=== PATIENT | female | born 1950 | race Caucasian/White ===

== ENCOUNTER 2021-03-12 10:04 | Outpatient (REF) | payer MEDICARE, SELFPAY ==
[2021-03-12 10:49] LABS: MANUAL DIFF FLAG NO
[2021-03-12 11:09] LABS: Basophils Percent Auto 0.7 % (0-2); Eosinophils Absolute Auto 0.1 X10*3/uL (0.0-0.4); Eosinophils Percent Auto 1.9 % (0-4); Hematocrit 42.3 % (37-47); Imm Gran Abs Auto 0.04 X10*3/uL (0.00-0.03); Imm Gran Pct Auto 0.9 % (0.0-0.4); Lymphocytes Absolute Auto 1.5 X10*3/uL (1.2-4.9); Lymphocytes Percent Auto 34.1 % (20-40); Mean Corpuscular HGB Conc 33.1 g/dl (31.0-35.0); Mean Corpuscular Hemoglobin 32.2 pg (27.0-33.0); Mean Corpuscular Volume 97.2 fL (80-98); Mean Platelet Volume 9.1 fL (9.4-12.3); Monocytes Absolute Auto 0.8 X10*3/uL (0.1-1.2); Monocytes Percent Auto 17.5 % (2-11); Neutrophils Absolute Auto 1.9 X10*3/uL (2.0-8.3); Neutrophils Percent Auto 44.9 % (45-73); Platelet Count 185 X10*3/uL (160-400); Red Blood Count 4.35 X10*6/uL (4.20-5.50); Red Cell Distribution Width 13.1 % (11.0-16.0); White Blood Count 4.3 X10*3/uL (4.8-10.8)
[2021-03-12 11:26] LABS: Phenytoin Dilantin 15.6 ug/mL (10.0-20.0); Valproate 43.9 mcg/mL (50.0-100.0)
== END 2021-03-12 10:05 | disposition home or self-care (01) ==
LOC: HO.LAB 10:04
PROVIDERS: PCP Internal Medicine; Visit Provider Psychiatry & Neurology Neurology
DX: G40.909 Epilepsy, unspecified, not intractable, without status epilepticus (principal); Z79.899 Other long term (current) drug therapy
CPT/HCPCS: 36415; 80164; 80185; 85025

== ENCOUNTER 2021-09-02 10:14 | Outpatient (REF) | payer MEDICARE, SELFPAY ==
[2021-09-02 12:03] LABS: Phenytoin Dilantin 14.5 ug/mL (10.0-20.0); Valproate 38.7 mcg/mL (50.0-100.0)
== END 2021-09-02 10:15 | disposition home or self-care (01) ==
LOC: HO.LAB 10:14
PROVIDERS: PCP Internal Medicine; Visit Provider Psychiatry & Neurology Neurology
DX: G40.909 Epilepsy, unspecified, not intractable, without status epilepticus (principal); Z79.899 Other long term (current) drug therapy
CPT/HCPCS: 36415; 80164; 80185

== ENCOUNTER 2022-03-18 09:55 | Outpatient (REF) | payer MEDICARE, SELFPAY ==
[2022-03-18 12:31] LABS: Phenytoin Dilantin 17.1 ug/mL (10.0-20.0); Valproate 24.6 mcg/mL (50.0-100.0)
== END 2022-03-18 09:56 | disposition home or self-care (01) ==
LOC: HO.LAB 09:55
PROVIDERS: PCP Internal Medicine; Visit Provider Psychiatry & Neurology Neurology
DX: G40.909 Epilepsy, unspecified, not intractable, without status epilepticus (principal); Z79.899 Other long term (current) drug therapy
CPT/HCPCS: 36415; 80164; 80185

== ENCOUNTER 2022-09-08 09:37 | Outpatient (REF) | payer MEDICARE, SELFPAY ==
[2022-09-08 10:36] LABS: Alanine Aminotransferase 30 U/L (0-31); Albumin Level 4.2 g/dL (3.5-5.0); Alkaline Phosphatase 70 U/L (39-117); Aspartate Amino Transferase 36 U/L (5-31); Bilirubin Direct < 0.2 mg/dL (0.0-0.5); Bilirubin Total 0.3 mg/dL (0.0-1.0); Total Protein 7.1 g/dL (6.5-8.0)
[2022-09-08 10:46] LABS: Valproate 42.1 mcg/mL (50.0-100.0)
[2022-09-08 11:09] LABS: Phenytoin Dilantin 14.7 ug/mL (10.0-20.0)
== END 2022-09-08 09:38 | disposition home or self-care (01) ==
LOC: HO.LAB 09:37
PROVIDERS: PCP Internal Medicine; Visit Provider Psychiatry & Neurology Neurology
DX: G40.909 Epilepsy, unspecified, not intractable, without status epilepticus (principal); Z79.899 Other long term (current) drug therapy
CPT/HCPCS: 36415; 80076; 80164; 80185

== ENCOUNTER 2024-03-01 10:15 | Outpatient (REF) | payer MEDICARE, SELFPAY ==
[2024-03-01 11:58] LABS: Valproate 21.6 mcg/mL (50.0-100.0)
== END 2024-03-01 10:16 | disposition home or self-care (01) ==
LOC: HO.LAB 10:15
PROVIDERS: PCP Internal Medicine; Visit Provider Psychiatry & Neurology Neurology
DX: G40.909 Epilepsy, unspecified, not intractable, without status epilepticus (principal)
CPT/HCPCS: 36415; 80164

== ENCOUNTER 2024-07-10 21:59 | Emergency (ER) | payer MEDICARE, SELFPAY ==
--- NOTE | ~2024-07-10 | CT_ITS ---
EXAMINATION: CT ABDOMEN AND PELVIS WITH CONTRAST CLINICAL INFORMATION: Abdominal pain. COMPARISON: None available. TECHNIQUE: Multidetector volumetric images were obtained from the superior aspect of the liver through the pubic symphysis following administration 85 mL of Omnipaque 350 intravenous contrast. Sagittal and coronal reformatted images were obtained on the technologist's workstation. Oral contrast: No This CT examination was performed using dose optimization techniques as appropriate, variously including the following: *Automated exposure control *Adjustment of mA and/or kV according to patient size (this includes techniques or standardized protocols for targeted exams where dose is matched to indication/reason for exam; i.e. extremities or head) *Use of iterative reconstruction technique DLP: 407 mGy-cm FINDINGS: LUNG BASES: The visualized lung bases are unremarkable. LIVER, GALLBLADDER, AND BILIARY TREE: The liver is normal in size, shape, and attenuation. No focal hepatic lesion or biliary ductal dilatation is present. The gallbladder is unremarkable with no evidence of radiopaque gallstones, gallbladder wall thickening, or obvious pericholecystic inflammatory changes. PANCREAS: Unremarkable. SPLEEN: Unremarkable. ADRENAL GLANDS: Unremarkable. KIDNEYS AND URETERS: The kidneys are normal in size, shape, and attenuation. No hydronephrosis, hydroureter, or calculi seen. No perinephric stranding. There are a few bilateral renal subcentimeter hypodensities likely small cysts. BLADDER: Unremarkable. GASTROINTESTINAL TRACT: There is a single diverticula of the sigmoid colon without diverticulitis. The appendix is not identified. ABDOMINAL WALL: There is a small supraumbilical hernia containing fat. There is a minimal umbilical hernia containing fat. LYMPH NODES: Normal. VASCULAR: There is mild atherosclerotic plaque of the abdominal aorta. PELVIC VISCERA: Unremarkable. OSSEOUS STRUCTURES: There is moderate L4-[address]/CT abdomen pelvis w IV con IMPRESSION: Mild diverticulosis of the sigmoid colon. No evidence of diverticulitis. Small supraumbilical and umbilical hernias containing fat. No definitive acute intra-abdominal process identified. Fleischner guidelines were followed. Electronically signed by: Maximino George MD 07/11/2024 01:52 AM EDT
[2024-07-10 22:05] VITALS: BP 156/86; PULSE 84; RESP 18; TEMP 36.9; O2SAT 96; BMI 25.5
[2024-07-10 22:39] LABS: Hemoglobin 13.8 g/dl (12.0-16.0); Mean Corpuscular HGB Conc 34.5 g/dl (31.0-35.0); Mean Corpuscular Hemoglobin 32.4 pg (27.0-33.0); Mean Corpuscular Volume 93.9 fL (80.0-98.0); Mean Platelet Volume 8.8 fL (9.4-12.3); Red Blood Count 4.26 X10*6/uL (4.20-5.50); Red Cell Distribution Width 13.1 % (11.0-16.0)
[2024-07-10 22:53] LABS: Alanine Aminotransferase 25 U/L (0-31); Alkaline Phosphatase 66 U/L (39-117); Anion Gap 13 (12-20); Aspartate Amino Transferase 28 U/L (5-31); Bilirubin Total 0.3 mg/dL (0.0-1.0); Blood Urea Nitrogen 14 mg/dL (9-16); Calcium 8.6 mg/dL (8.4-10.2); Carbon Dioxide 25 mmol/L (22-29); Chloride 95 mmol/L (96-108); Creatinine Clr Calc Pharmacy 56.8; Estimated Glomerular Filt Rate > 60; Glucose Random 168 mg/dL (60-115); Lipase 60 U/L (8-78); Potassium 4.6 mmol/L (3.3-5.1); Sodium 128 mmol/L (135-145)
--- NOTE | 2024-07-10 23:20 | ED_ITS ---
HPI - General Adult General Chief complaint: Abdominal Pain Stated complaint: constipation, abd pain Time Seen by Provider: 07/10/24 23:20 History of Present Illness ED Provider: Lorene MORALES narrative: The patient is a 74-year-old female who says that about 9 days ago she thought she had food poisoning. She had nausea and loose stools. She took Pepto-Bismol for a few days. But she has continued to feel unwell. Over the last 2 days she is concerned that she has had no bowel movements at all. She thought she might be constipated and gave herself enemas at home without relief.The patient reports feeling nausea. She says that the nausea is most apparent when she is indoors doing nothing in particular. She says that she has been spending a certain amount of time outside doing yard work. she says that when she is outside an active she is less aware of the nausea. She has not vomited. She feels that her abdomen is distended and uncomfortable. She does not really have pain however. No fever. No vomiting. She has a history of an appendectomy as a child. She has also had hysterectomy. Related Data Previous Rx's ?Medication ?Instructions ?Recorded metoclopramide HCl 10 mg tablet 10 mg PO Q6H PRN nausea and 07/11/24 vomiting #10 tabs Allergies Allergy/AdvReac Type Severity Reaction Status Date / Time Sulfa (Sulfonamide Allergy Unknown UNKNOWN Verified 07/11/24 03:47 Antibiotics) [SULFA (SULFONAMIDE ANTIBIOTICS)] Review of Systems 2 Review of Systems: Yes all other systems are reviewed and are negative PMFSH Social History Social History Smoked in Last 30 Days: No Use of substances other than those prescribed or required for medical reasons: No Advance Directives: No Advance Directives Information Provided: Yes Physical Exam ED Vital Signs: Vital Signs - 24 hr 07/10/24 22:05 07/10/24 23:41 07/11/24 01:25 Temperature 98.5 F 97.5 F 98.3 F Pulse Rate 84 75 72 Respiratory Rate 18 18 17 Blood Pressure 156/86 H 137/76 118/66 Pulse Oximetry 96 97 99 Oxygen Delivery Method Room Air Room Air Room Air 07/11/24 03:15 Temperature 98.5 F Pulse Rate 70 Respiratory Rate 16 Blood Pressure 116/73 Pulse Oximetry 98 Oxygen Delivery Method Room Air BMI result Body Mass Index 25.5 Const Other: the patient is a 74-year-old woman who is awake and alert. She has an anxious affect. She does not appear in overt distress. HENMT Other: Face is symmetrical. Mucous membranes not obviously dry. Eyes General: appearance normal, both eyes and all related structures Conjunctivae: conjunctivae normal Sclerae: sclerae normal EOM: EOMs intact bilaterally Neck Neck: Yes full ROM and Yes no JVD Resp Effort & Inspection: normal respiratory effort Auscultation: clear to auscultation bilaterally Cardio Rate: regular rate Rhythm: regular rhythm Heart sounds: S1 normal heart sound present and S2 normal heart sound present GI Other: the abdomen may be mildly protuberant but it is not tense or tympanitic. No obvious focal tenderness of any significance. No rebound or guarding. Skin Other: Skin is pale and dry. Neuro Other: The patient is awake and alert with normal mental status. Cranial nerves are grossly intact. She moves her extremities normally. She has a normal gait. The Extrem Other: no peripheral edema Medications Administered Discontinued Medications Generic Name Dose Route Start Last Admin Trade Name Freq PRN Reason Stop Dose Admin Sodium Chloride 1,000 mls @ 999 mls/hr 07/10/24 23:45 07/11/24 02:10 Ns IV 07/11/24 00:45 Infused .Q1H1M MIMA Infusion Iohexol 85 ml 07/11/24 00:43 07/11/24 00:43 Iohexol 350 Mg/Ml 100 Ml Infus..Btl IV 07/11/24 00:44 85 ml ONCE ONE Administration Medical Decision Making Medical Decision Making [facility] Narrative: the patient is a 74-year-old woman who has felt that she has had abdominal problems for about 8 days. She has had nausea but no vomiting. She had some loose stools several days ago but has had no bowel movements for the last 2 days. She says that typically she has very regular bowel movements. She feels that the absence of bowel movements over the last 2 days most indicate a constipation. She tried enemas at home with no stool output. She describes persistent nausea and mild general abdominal discomfort. She has a history of an appendectomy and a hysterectomy. Her physical exam is not highly suggestive of an acute surgical abdomen but given the persistence of her symptoms a CT of the abdomen and pelvis was done. This did not show any distinct pathology. It did not suggest any significant constipation.Her labs are unremarkable. The patient was given a L of IV fluids. She was reassured. I expect that she has some kind of gastrointestinal indisposition that I expect will ultimately will be self-limiting. Lab Data 07/10/24 22:31 07/10/24 22:31 Labs: Lab Results 07/10/24 Range/Units 22:31 WBC 5.6 (4.8-10.8) X10*3/uL RBC 4.26 (4.20-5.50) X10*6/uL Hgb 13.8 (12.0-16.0) g/dl Hct 40.0 (37.0-47.0) % MCV 93.9 (80.0-98.0) fL MCH 32.4 (27.0-33.0) pg MCHC 34.5 (31.0-35.0) g/dl RDW 13.1 (11.0-16.0) % Plt Count 188 (160-400) X10*3/uL MPV 8.8 L (9.4-12.3) fL Immature Gran % (Auto) 0.8 H (0.0-0.4) % Neut % (Auto) 57.2 (45-73) % Lymph % (Auto) 23.5 (20-40) % [place] % (Auto) 15.8 H (2-11) % Eos % (Auto) 2.1 (0-4) % Baso % (Auto) 0.6 (0-2) % Lymph # (Auto) 1.2 (1.2-4.9) X10*3/uL [place] # (Auto) 0.8 (0.1-1.2) X10*3/uL Eos # (Auto) 0.1 (0.0-0.4) X10*3/uL Baso # (Auto) 0.0 (0.0-0.2) X10*3/uL Abs Immat Gran (auto) 0.04 H (0.00-0.03) X10*3/uL Absolute Neuts (auto) 3.0 (2.0-8.3) x10*3/uL Absolute Nucleated RBC 0.000 (0.0-0.012) X10*3/uL Nucleated RBC % (auto) 0.0 (0.0-0.2) /100WBC Smear Tech's Comments VERIFIED Sodium 128 L (135-145) mmol/L Potassium 4.6 (3.3-5.1) mmol/L Chloride 95 L (96-108) mmol/L Carbon Dioxide 25 (22-29) mmol/L Anion Gap 13 (12-20) BUN 14 (9-16) mg/dL Creatinine 0.77 (0.5-1.4) mg/dL Estim Creat Clear Calc 56.8 Estimated GFR > 60 Random Glucose 168 H (60-115) mg/dL Calcium 8.6 (8.4-10.2) mg/dL Total Bilirubin 0.3 (0.0-1.0) mg/dL AST 28 (5-31) U/L ALT 25 (0-31) U/L Alkaline Phosphatase 66 (39-117) U/L C-Reactive Protein 0.42 (< or = 0.50) mg/dL Total Protein 7.0 (6.5-8.0) g/dL Albumin 4.0 (3.5-5.0) g/dL Lipase 60 (8-78) U/L Discharge Plan Discharge Clinical Impression: Nausea, Abdominal discomfort Patient Disposition: Home, Self-Care Additional Instructions: Your testing in the emergency room today is for the most part quite reassuring. I have sent a prescription for medication called metoclopramide (also known as Reglan) to your pharmacy. You may use this as needed for nausea symptoms. Please contact your regular doctor's office in the morning to make a follow up appointment to discuss these symptoms further. Return to the emergency room if significantly worse. Prescriptions: New metoclopramide HCl 10 mg tablet 10 mg PO Q6H PRN (Reason: nausea and vomiting) Qty: 10 0RF Referrals: Asher Sandoval III, MD [Primary Care Provider] - (Nausea) Interventions: ED Discharge Assessment Last Done: 07/11/24 03:15 Discharge Date/Time: 07/11/24 03:15 Print Language: Guamanian
[2024-07-10 23:41] VITALS: BP 137/76; PULSE 75; RESP 18; TEMP 36.4; O2SAT 97
[2024-07-11 00:18] LABS: Basophils Percent Auto 0.6 % (0-2); Eosinophils Absolute Auto 0.1 X10*3/uL (0.0-0.4); Eosinophils Percent Auto 2.1 % (0-4); Imm Gran Abs Auto 0.04 X10*3/uL (0.00-0.03); Imm Gran Pct Auto 0.8 % (0.0-0.4); Lymphocytes Absolute Auto 1.2 X10*3/uL (1.2-4.9); Lymphocytes Percent Auto 23.5 % (20-40); MANUAL DIFF FLAG SCAN; Monocytes Absolute Auto 0.8 X10*3/uL (0.1-1.2); Monocytes Percent Auto 15.8 % (2-11); Neutrophils Percent Auto 57.2 % (45-73); PLT CLUMP 1; SCAN SMEAR FLAG 1
[2024-07-11 00:23] LABS: Platelet Count 188 X10*3/uL (160-400); White Blood Count 5.6 X10*3/uL (4.8-10.8)
[2024-07-11] MEDS: iohexoL 350 MG/ML 100 ML INFUS..BTL 85 ML IV (00:43)
[2024-07-11 00:47] LABS: SLIDE REVIEW VERIFIED
[2024-07-11] MEDS: 0.9 % Sodium Chloride 1,000 ML 999 ML IV (01:09)
[2024-07-11 01:25] VITALS: BP 118/66; PULSE 72; RESP 17; TEMP 36.8; O2SAT 99
[2024-07-11 01:41] LABS: C Reactive Protein 0.42 mg/dL (< or = 0.50)
[2024-07-11 03:15] VITALS: BP 116/73; PULSE 70; RESP 16; TEMP 36.9; O2SAT 98
== END 2024-07-11 03:15 | disposition home or self-care (01) ==
PROVIDERS: Emergency Provider Emergency Medicine; PCP Internal Medicine
DX: K59.00 Constipation, unspecified (principal); R11.2 Nausea with vomiting, unspecified; R10.30 Lower abdominal pain, unspecified; Z79.899 Other long term (current) drug therapy
CPT/HCPCS: 36415; 74177; 80053; 83690; 85025; 85027; 86140; 96360; 99285; Q9967

== ENCOUNTER 2025-07-12 08:58 | Outpatient (REF) | payer MEDICARE, SELFPAY | END 2025-07-12 08:59 | disposition home or self-care (01) | LOC: HO.LAB 08:58 | PROVIDERS: PCP Internal Medicine; Visit Provider Psychiatry & Neurology Neurology | DX: G40.909 Epilepsy, unspecified, not intractable, without status epilepticus (principal); G25.0 Essential tremor; Z79.899 Other long term (current) drug therapy | CPT/HCPCS: 36415; 80164; 80185; 99212 ==

== ENCOUNTER 2025-07-12 08:58 | Outpatient (AMB) | payer MEDICARE, SELFPAY ==
--- NOTE | 2025-07-12 08:59 | A.OFFVIS_ITS ---
Intake Visit Reasons: f/u for Sz, Tremors Allergies Sulfa (Sulfonamide Antibiotics) (SULFA (SULFONAMIDE ANTIBIOTICS)) Allergy (Unknown, Verified 07/11/24 03:47) UNKNOWN Medication List - Last Reconciled 07/12/25 by Amanda Kauffman MD Depakote (divalproex) 250 mg PO TID 90 days NS Dilantin Extended (phenytoin sodium extended) 100 mg orally 2 caps on even days, 3 caps on odd days; 90 days NS metoclopramide HCl 10 mg PO Q6H PRN primidone 50 mg PO BEDTIME HPI Comments Details: 75 yr old woman with long standing seizure disorder. Doing well with no sz since 09/06/19. Has been having some balance problems, better by swinging arms. Walks 1 mile daily. One trip and near fall. Severe leg cramps controlled with some OTC pills of Magnesium. Tremors R>L worse with coffee. She has a history of epilepsy since childhood age 13 yrs. She's had a total of approximately 30 grand mal seizures in her life. Every time she was she would have a bunch of seizures. She has been on anticonvulsants all of her life. Her last grand mal seizure > 14 yrs ago after switching from brand-name to generic medication. She has no side effects from the medications. Lab work has been done but is not available at this time. She has no other medical problems. Teeth Are sensitive and eyes are sensitive to light also. ? Tremors in the hands have increased somewhat especially if she is holding something after stopping her Primidone 6 weeks ago. [facility] Medical History (Updated 07/12/25 @ 09:11 by Amanda Kauffman MD) Benign essential tremor Ataxia Seizure disorder Review of Systems Const Details: Sleep:? Difficulty getting to sleep?denies.? Difficulty maintaining sleep?denies? .? Urge to move legs?denies.? Teeth grinding?denies.? Shouting or Kicking during sleep?denies.? Abnormal behavior during sleep?denies.? Excessive sleep?denies.? Snoring?denies.? Daytime sleepiness?denies.? ?? General/Constitutional:? Change in appetite?denies.? Chills?denies.? Fatigue?denies.? Fever?denies .? Weight gain?denies.? Weight loss?denies.? ?? Ophthalmologic:? Blurred vision?denies.? Diminished visual acuity?denies.? ?? ENT:? Stuffiness?denies.? Decreased hearing?denies.? Dry mouth?denies.? Ear pain?denies.? Nosebleed?denies.? Ringing in the ears?denies.? Sinus pain?denies .? Sore throat?denies.? Swollen glands?denies.? ?? Endocrine:? Cold intolerance?denies.? Excessive thirst?denies.? Frequent urination? denies.? Heat intolerance?denies.? ?? Respiratory:? Shortness of breath?denies.? Chest pain?denies.? Cough?denies.? ?? Breast:? Breast lump?denies.? Nipple discharge?denies.? ?? Cardiovascular:? Chest pain at rest?denies.? Chest pain with exertion?denies.? Claudication?denies.? Dizziness?denies.? Fluid accumulation in the legs?denies.? Irregular heartbeat?denies.? Palpitations?denies.? ?? Gastrointestinal:? Abdominal pain?denies.? Constipation?denies.? Diarrhea?denies.? Difficulty swallowing?denies.? Heartburn?denies.? Nausea?denies.? Rectal bleeding?denies.? ?? Hematology:? Easy bruising?denies.? Prolonged bleeding?denies.? ?? Genitourinary:? Frequent urination?denies.? Urgency?denies.? Incontinence?denies.? Erectile Dysfunction?denies.? ?? Musculoskeletal:? Neck pain?denies.? Back pain?denies.? Muscle aches?denies.? Painful joints?denies.? Sciatica?denies.? Weakness?denies.? ?? Podiatric:? Difficulty walking?denies.? Foot numbness?denies.? ?? Neurologic:? Difficulty swallowing?denies.? Balance difficulty?denies.? Coordination? normal.? Difficulty speaking?denies.? Dizziness?denies.? Fainting?denies.? Gait abnormality?denies.? Headache?denies.? Loss of strength?denies.? Loss of use of extremity?denies.? Low back pain?denies.? Memory loss?denies.? Seizures?denies.? Tics?denies.? Tingling/Numbness?denies.? Transient loss of vision?denies.? Tremor?admits.? ?? Psychiatric:? Anxiety?denies.? Auditory/visual hallucinations?denies.? Delusions?denies .? Depressed mood?denies.? Stressors?denies.? Substance abuse?denies.? Suicidal thoughts?denies.? ?? Physical Exam Neuro Other: Neurological: ? Abnormal neurological findings:?Tremor in hands L>R on sustained posture. Truncal ataxia on tandem gait.? Mental Status:?alert and oriented X 3,?Normal attention, orientation, memory and affect.? Cranial Nerves:?Pupils are equal, round and reactive to light. Fundoscopy shows normal disc bilaterally. External occular muscles are intact. Visual muhammad are full, no ptosis. Face is symmetrical, no facial weakness or droop. Facial sensations are normal. Tongue protrudes in midline. Palate elevates symmetrically. Shoulder shrugging is normal..? Motor Examination:?Normal muscle tone, bulk and strength,?No atrophy or fasciculations,?No drift of the extended upper extremities,?Deep tendon reflexes are 2+?,?Plantars are flexor?.? Straight Leg Raising:?90 degrees.? Sensory Exam:?Normal light touch, temperature, pinprick, vibration and joint-position sensations?,?Rhomberg sign is absent.? Coordination:?no ataxia,?no titubation,?[id number]-[id number], afqx-fltb-coqd test and rapid alternating movements were normal.? Gait Exam:?Within normal limits.? Cerebellar Signs:?[id number]-[id number]-[id number] and fafb-jg-levj is normal,?no dysdiadochokinesia?.? Extrapyramidal System:?Tremor as above. No?rigidity with normal facial expressions,?No bradykinesia, no bradyphrenia. Normal arm swing and posture. No propulsion or retropulsion.? Speech:?Normal,?no dysphasia or dysarthria..? Mini Mental Status Exam: ? Level of Consciousness:?Alert.? Orientation:?Knows correct year, month, date, day and season,?Knows correct city, county and state. Knows correct location and floor.? Registration:?Able to register 3 objects.? Attention:?Serial 7's performed accurately.? Recall:?Able to recall 3 out of 3 objects.? Language:?Normal spontaneous speech, fluency, repetition,naming, comprehension, reading and writing.? Total Score:?30/30.? General Examination: ? GENERAL APPEARANCE:?normal,?in no acute distress.? HEAD:?normocephalic,?atraumatic.? EYES:?sclera non-icteric,?conjunctiva clear.? EARS:?auditory canal clear,?tympanic membrane intact, clear.? NOSE:?no lesions.? ORAL CAVITY:?gums normal,?mucosa moist,?no lesions.? THROAT:?clear.? NECK/THYROID:?no cervical lymphadenopathy,?thyroid normal,?neck supple, full range of motion,?no carotid bruit.? SKIN:?no rashes,?no significant birthmarks.? HEART:?S1, S2 normal,?no murmurs.? LUNGS:?clear anteriorly and posteriorly.? CHEST:?no gross rib deformity,?clear to auscultation.? BACK:?normal exam of spine.? EXTREMITIES:?no edema.? PERIPHERAL PULSES:?normal.? PSYCH:?alert, oriented,?cognitive function intact,?cooperative with exam.? Assessment & Plan Assessment & Plan (1) Seizure disorder: Code(s): G40.909 - Epilepsy, unspecified, not intractable, without status epilepticus Category: Medical (2) Benign essential tremor: Code(s): G25.0 - Essential tremor Category: Medical Plan Labs to check levels of AEDs. Continue current meds. Orders: Orders Phenytoin Dilantin Today G40.909 - Epilepsy, unspecified, not intractable, without status epilepticus Valproate Today G40.909 - Epilepsy, unspecified, not intractable, without status epilepticus Medications: New primidone 50 mg PO BEDTIME 90 tabs 3RF 90 days Refilled Depakote (divalproex) 250 mg PO TID 270 tabs 1RF 90 days NS Dilantin Extended (phenytoin sodium extended) 100 mg orally 2 caps on even days, 3 caps on odd days; 270 caps 3RF 90 days NS Coding Level of Care Code Est Pt Level 4 (58462) Diagnoses Seizure disorder G40.909 Benign essential tremor G25.0
--- OUTSIDE RECORDS SUMMARY | 2025-07-12 10:34 | XMS_ITS | Patient Health Record ---
Author Organization [facility] Address [address] [place] [address] Care Team Providers Care Mica Plate Layer Hand Name Role Phone Greg Cody Primary Care Provider Unavailabl e Allergies Allergen (clinical drug ingredient) Drug/Non Drug Allergy documented on EMR Reaction Allergy Type Onset Date Status Vicodin Unknown Drug Allergy Active Substance with sulfonamide structure and antibacterial mechanism of action (substance) Sulfa Antibiotics Unknown Drug Allergy Active Reason For Referral No Information Medications Medication SIG (Take, Route, Frequency, Duration) Notes Start Date End Date Status Diclofenac Sodium 1 % as directed Transdermal place 1 g onto the skin 2 times daily Active Depakote ER 250 MG 1 tablet Orally take 1 tab by mouth 3 times a day Active Phenytoin Sodium Extended 100 MG 1 capsule Orally take 3 times daily. 3 times daily on odd days and 2 cap even days Active Multi Vitamin - 1 tablet Orally Once a day take 1 tab daily Active Calcium take by mouth bid Active Primidone 50 MG as directed Orally 1 tab at bed time Active [place] 3 take by moth daily Active Naproxen 500 MG 1 tablet with food o r milk as needed Orally take 1 tab by mouth 2 times daily(with meals for 10 days Active Plan Of Treatment Pending Test Test Name Order Date Pneumati walking boot prefab 05/07/2020 Insurance Providers Payer Name Payer Address Payer Phone Subscriber Number Group Number Insured Name Patient Relationship to Insured Coverage Start Date Coverage End Date [facility] [address] [place] [phone] [phone] [id number] [place] Joselin Self - patient is the insured Medical (General) History Medical History History ICD Code uterine prolapse tremor epilepsy osteopenia actinic keratosis Surgical History Surgery Date(Month/Year) breast surgery/breast biopsy
--- OUTSIDE RECORDS SUMMARY | 2025-07-12 10:34 | XMS_ITS ---
Author Name [facility] Organization [facility] Care Team Organization Name Specialty Phone Email Start Date End Da te [facility] 08/26/2022 4
--- OUTSIDE RECORDS SUMMARY | 2025-07-12 10:34 | XMS_ITS | Clinical Summary ---
Author Organization [facility] [address] [place] [address] [place] [address] [place] [address] Phone Care Team Providers Care Healthcare Specialist Name Role Phone Asher Sandoval MD Primary Care Provider [phone] Allergies Active Allergy Reactions Criticality Noted Date Comments Hydrocodone-Acetaminophen 11/04/2005 Other Itching 07/20/2012 Other Reaction(s): Rash/Dermatitis Poison Judi/Poison [place] Sulfacetamide Sodium 11/04/2005 Terramycin 11/04/2005 Medications magnesium glycinate 100 mg magnesium capsule Take by mouth. Activ e UNABLE TO FIND Moringa 500 MG Cap Take by mouth. Active MULTIVITAMIN ORAL Take by mouth daily. Active divalproex (Depakote) [address] tablet TAKE 1 TABLET BY MOUTH 3 TIMES A DAY. 3 Active phenytoin (DILANTIN) 100 mg ER capsule Take by mouth 3 times daily. 3 times daily on odd days and 2 tabs even days Active turmeric root extract 500 mg capsule Take by mouth. Activ e vitamin E, dl,tocopheryl acet, (vitamin E, dl, acetate,) 45 mg (100 unit) capsule Take 100 Units by mouth daily. Active chlorpheniramin e (CHLOR-TRIMETON ) 4 mg tabletIndicatio ns:Poison judi dermatitis Take 1 tablet (4 mg total) by mouth every 6 (six) hours if needed for allergies for up to 10 days. 30 tablet 5 Active predniSONE (DELTASONE) 20 mg tabletIndicatio ns:Poison judi dermatitis Take 60 mg PO daily for 3 days, then take 40 mg PO daily for 3 days, then 20 mg PO daily for 3 days, then stop 18 tablet 5 Active Additional Information Patient not taking.Reported on 05/22/2025 bisacodyL (DULCOLAX) 5 mg EC tablet Take 2 tablets by mouth right before beginning bowel prep. See instructions provided by the office 2 tablet 5 Active polyethylene glycol (Golytely) 236-22.74-6.74 -5.86 gram solution Take 4L by mouth once for one dose. May substitue any PEG. Starting at 2PM the day before your procedure drink 1 8oz glasses at your own pace until you complete half of the gallon. Finish 2nd half of the gallon at 8PM. 4000 mL 5 Active Active Problems Problem Noted Date Diagnosed Date Heel pain, bilateral 04/08/2019 Actinic keratoses 09/03/2018 Uterine prolapse 06/03/2016 Osteopenia 08/12/2012 Overview (09/30/2024): 01/25 T score spine -1.7 hip -0.8 2017 T score -2.2 and hip fracture risk 3.6 %. Pt. Declines medication at present, repeat DEXA in two years. Tremor 04/26/2009 Epilepsy ([facility] V24, [facility] V28) 04/10/2006 Overview (09/30/2024): Grand mal seizures, none since 2008, follows with neurology Encounters Date Type Department Care Team Description 06/20/2025 7:50 AM EDT Anesthesia Event [facility] Endoscopy [address] [place] [address] Tk Beckham MD Pierce, Trudy A, CURING PRESS MAINTAINER 06/20/2025 7:11 AM EDT - 06/20/2025 11:59 PM EDT Hospital Encounter [facility] Endoscopy [address] [place] [id number] Cory Gao MD Pierce, Trudy A, CRNA Spencer, Mark A, MD Positive colorectal cancer screening using Cologuard test Discharge Disposition: Home or Self Care 06/12/2025 Telephone Adult Medicine [address], [place] [phone] Asher Sandoval MD 05/22/2025 9:00 AM EDT Office Visit Adult Medicine [address] [phone] Asher Sandoval MD Routine physical examination (Primary Dx); Elevated blood sugar; Encounter for long-term (current) use of medications; Screen for colon cancer; Nonintractable epilepsy without status epilepticus, unspecified epilepsy type ([facility] V24, [facility]) 04/27/2025 9:30 AM EDT Office Visit Adult Medicine [address] [phone] Little Jones NP Poison judi dermatitis (Primary Dx) from Last 3 Months Immunizations Name Administration Dates Next Due Influenza trivalent, 0.5mL, preservative free (Fluarix; FluLaval; Fluzone) ages 6mo and older (Afluria) 3 years and older 08/08/2013 Influenza, Unspecified 06/15/2015,11/03/2012 Td Tetanus diptheria (Tdvax) 7yo and older 04/08 Tdap Tetanus diptheria acell ular pertussis (Boostrix; Adacel) 7yo and older 04/26/2009 Zoster Live 06/19/2014 Surgical History Surgery Date Site/Laterality Comments OTHER SURGICAL HISTORY PROCEDURE: DENIES PREVIOUS SURGERY BREAST SURGERY Right PROCEDURE: HI UNLISTED PROCEDURE BREAST; COMMENT: b9 BREAST BIOPSY Right PROCEDURE: BX BREAST; PERC NEEDLE CORE W/IMAG GUID; COMMENT: b9 COLONOSCOPY PROCEDURE: HISTORICAL COLONOSCOPY Medical History Medical History Date Comments Other convulsions 04/10/2006 DX:Other convu lsions; COMMENT: the patient states she does not have high blood pressure Epilepsy ([facility], [facility] V28) 04/10/2006 DX:Epilepsy (HCC) Family History Medical History Relation Name Comments Prostate cancer Brother Other: Other Father Stroke Mother in her 60s Breast cancer Sister 1 Blindness Neg Hx Cataracts Neg Hx Colon cancer Neg Hx Glaucoma Neg Hx Macular degeneration Neg Hx Strabismus Neg Hx Relation Name Status Comments Brother prostate cancer Father Maternal Grandfather Maternal Grandmother Mother (Age -65) stroke Paternal Grandfather Paternal Grandmother Sister 1 three sisters Sister 2 Sister 3 Alive Social History Tobacco Use Types Packs/Day Years Used Date Smoking Tobacco: Never Smokeless Tobacco: Never Alcohol Use Standard Drinks/Week Comments No 0 (1 standard drink = 0.6 oz pur e alcohol) Interpersonal Safety Answer Date Record ed Physical Abuse 06/20/2025 Verbal Abuse 06/20/2025 Comments No Sex and Gender Information Value Date Recorded Sex Assigned at Female 06/20/2025 7:08 AM EDT Legal Sex Female 7:56 AM EST Gender Identity Female 06/20/2025 7:08 AM EDT Sexual Orientation Straight 06/20/2025 7: 08 AM EDT Obstetrics History Para Term AB IAB SAB Ectopic Multiple Livin g Live Births 3 3 3 3 Date Outcome GA Total Labor Labor/2nd/3rd Weight Sex Type Anes PTL Diana A1 A5 Name Clin Term Term Term Last Filed Vital Signs Vital Sign Reading Time Taken Comments Blood Pressure 126/79 06/20/2025 8:29 AM EDT Pulse 63 06/20/2025 8:29 AM EDT Temperature 36 C (96.8 F) 06/20/2025 7:20 AM EDT Respiratory Rate 16 06/20/2025 8:29 AM EDT Oxygen Saturation 100% 06/20/2025 8:29 AM EDT Inhaled Oxygen Concentration - - Weight 59 kg (130 lb) 06/20/2025 7:20 AM EDT Height 157.5 cm (5' 2 ) 06/20/2025 7:20 AM EDT Body Mass Index 23.78 06/20/2025 7:20 AM EDT Plan of Treatment Upcoming Encounters Date Type Department Care Team (Late st Contact Info) Description 06/11/2026 9:00 AM EDT Office Visit Adult Medicine [address] [phone] Asher Sandoval MD [address] [place] [address] Health Maintenance Due Date Last Done Comments COVID-19 Vaccine (#1) 1955 Pneumococcal Vaccine: 50+ Years (1 of 1 - PCV) 2001 Zoster Vaccines (1 of 2) 08/14/2014 06/19/2014, 07/20 Colorectal Cancer Screening: Stool Based Tests (FOBT/FIT) 09/21/2022 Medicare Annual Wellness Visit 09/21/2022 Social Influencers of Health Screening 09/21/2022 Influenza Vaccine (#1) 2025 5, 08/08/2013, 11/03/2012 RSV Immunization Adult Patients (1 - 1-dose 75+ series) 2026 Falls Risk Assessment 06/20/2026 06/20/2025, 025 Breast Cancer Screening 03/23/2027 03/23/20, 07/22/2023, 05/02/2021, Additional history exists DTaP,Tdap,and Td Vaccines (3 - Td or Tdap) 04/08/2029 04/08/2019, 04/26/2009 Cholesterol Screening (Lipid Panel) 05/22/2030 05/22/2025, 05/20/2024, 05/20/2024 Colorectal Cancer Screening: Colonoscopy 06/20/2030 06/20/2025 Osteoporosis Screening (Bone Density Screening) 07/21/2033 07/21/2023, 06/19/2020, 05/13/2017 Hepatitis C Screening Completed 03/17/2014 Depression Screening Completed 05/22/2025 HIB Vaccines Aged Out No longer eligi ble based on patient's age to complete this topic HPV Vaccines Aged Out No longer eligi ble based on patient's age to complete this topic Hepatitis A Vaccines Aged Out No long er eligible based on patient's age to complete this topic Hepatitis B Vaccines Aged Out No long er eligible based on patient's age to complete this topic IPV Vaccines Aged Out No longer eligi ble based on patient's age to complete this topic MMR Vaccines Aged Out No longer eligi ble based on patient's age to complete this topic Meningococcal ACWY Vaccine Aged Out N o longer eligible based on patient's age to complete this topic Meningococcal B Vaccine Aged Out No l onger eligible based on patient's age to complete this topic RSV Immunization Patients Under 20 months Aged Out No longer eligible based on patient's age to complete this topic Varicella Vaccines Aged Out No longer eligible based on patient's age to complete this topic Procedures Procedure Name Priority Date/Time Associated Diagnosis Comments COLONOSCOPY Routine 06/20/2025 8:08 AM EDT Positive colorectal cancer screening using Cologuard test TISSUE EXAM Routine 06/20/2025 8:05 AM EDT Positive colorectal cancer screening using Cologuard test LAB COLOGUARD COLON CANCER SCREEN Routine 06/05/2025 8:00 AM EDT Screen for colon cancer CBC WITH AUTO DIFFERENTIAL Routine 05/22/2025 9:44 AM EDT Routine physical examination HEMOGLOBIN A1C Routine 05/22/2025 9:44 AM EDT Elevated blood sugar CBC AND DIFFERENTIAL Routine 05/22/2025 9:44 AM EDT Routine physical examination COMPREHENSIVE METABOLIC PANEL Routine 05/22/2025 9:44 AM EDT Routine physical examination Elevated blood sugar LIPID PANEL WITH REFLEX TO DIRECT LDL Routine 05/22/2025 9:44 AM EDT Encounter for long-term (current) use of medications MG MAMMO DIGITAL SCREENING W QUIRINO BILAT Routine 03/23/2025 9:21 AM EDT Encounter for screening mammogram for breast cancer DXA BONE DENSITY STUDY 1+ SITS AXIAL SKEL Routine 07/21/2023 3:54 PM EDT Other specified personal risk factors, not elsewhere classified HM HEPATITIS C SCREENING Routine 03/17/2014 from Last 3 Months or Most Recently Relevant to Health Maintenance Results * COLONOSCOPY Anesthesia - MAC; SP ENDOSCOPY (06/20/2025 8:08 AM EDT) Anatomical Region Laterality Modality Endoscopy 06/20/2025 7:47 AM EDT Impressions 06/20/2025 8:09 AM EDT - Two 3 to 4 mm polyps at 30 cm proximal to the anus, removed with a cold snare. Resected and retrieved. - Non-bleeding internal hemorrhoids. - The examination was otherwise normal on direct and retroflexion views. Recommendation: - Discharge patient to home. - Resume previous diet. - Continue present medications. - Await pathology results. - Repeat colonoscopy for surveillance based on pathology results. - Return to GI office PRN. Narrative 06/20/2025 8:09 AM EDT [facility] GI Patient Name: Dian Tovar Procedure Date: 06/20/2025 7:47 AM Date of : 1950 Age: 75 Room: ROOM 15 Gender: Female Note Status: Finalized Attending MD: Cory Gao MD, Procedure Date No Time: 06/20/2025 Procedure: Colonoscopy Indications: Positive Cologuard test Providers: Cory Gao MD Referring MD: Cory Gao MD Medicines: Monitored Anesthesia Care Complications: No immediate complications. Estimated Blood Loss: Estimated blood loss: none. Procedure: Pre-Anesthesia Assessment: - ASA Grade Assessment: II - A patient with mild systemic disease. - After reviewing the risks and benefits, the patient was deemed in satisfactory condition to undergo the procedure. After I obtained informed consent, the scope was passed under direct vision. Throughout the procedure, the patient's blood pressure, pulse, and oxygen saturations were monitored continuously.The Olympus Pediatric Colonoscope was introduced through the anus and advanced to the cecum, identified by appendiceal orifice and ileocecal valve. The colonoscopy was performed without difficulty. The patient tolerated the procedure well. The quality of the bowel preparation was good. Findings: Two sessile polyps were found at 30 cm proximal to the anus. The polyps were 3 to 4 mm in size. These polyps were removed with a cold snare. Resection and retrieval were complete. Estimated blood loss was minimal. Non-bleeding internal hemorrhoids were found during retroflexion. The hemorrhoids were small. The exam was otherwise without abnormality on direct and retroflexion views. Procedure Code(s): --- Professional --- 59083, Colonoscopy, flexible; with removal of tumor(s), polyp(s), or other lesion(s) by snare technique Diagnosis Code(s): --- Professional --- R19.5, Other fecal abnormalities D12.6, Benign neoplasm of colon, unspecified CPT copyright 2020 [employer]. All rights reserved. The codes documented in this report are preliminary and upon glove tagger review may be revised to meet current compliance requirements. Cory Gao MD 06/20/2025 8:09:55 AM This report has been signed electronically.Cory Gao MD Number of Addenda: 0 Note Initiated On: 06/20/2025 7:47 AM Scope In: Scope Out: Endoscopy Department at [facility] - [address] [place] [id number] Procedure Note Cory Gao MD - 06/20/2025 [facility] GI Patient Name: Dian Tovar Procedure Date: 06/20/2025 7:47 AM Date of : 1950 Age: 75 Room: ROOM 15 Gender: Female Note Status: Finalized Attending MD: Cory Gao MD, Procedure Date No Time: 06/20/2025 Procedure: Colonoscopy Indications: Positive Cologuard test Providers: Cory Gao MD Referring MD: Cory Gao MD Medicines: Monitored Anesthesia Care Complications: No immediate complications. Estimated Blood Loss: Estimated blood loss: none. Procedure: Pre-Anesthesia Assessment: - ASA Grade Assessment: II - A patient with mild systemic disease. - After reviewing the risks and benefits, thepatient was deemed in satisfactory condition to undergo the procedure. After I obtained informed consent, the scope was passed under direct vision. Throughout theprocedure, the patient's blood pressure, pulse, and oxygen saturations were monitored continuously.The Olympus Pediatric Colonoscope was introduced through theanus and advanced to the cecum, identified byappendiceal orifice and ileocecal valve. The colonoscopy was performed without difficulty. The patient tolerated the procedure well. The quality of the bowel preparation was good. Findings: Two sessile polyps were found at 30 cm proximal tothe anus. The polyps were 3 to 4 mm in size. Thesepolyps were removed with a cold snare. Resection and retrieval were complete. Estimated blood loss was minimal. Non-bleeding internal hemorrhoids were found during retroflexion. The hemorrhoids were small. The exam was otherwise without abnormality ondirect and retroflexion views. Procedure Code(s): --- Professional --- 16266, Colonoscopy, flexible; with removal of tumor(s), polyp(s), or other lesion(s) by snare technique Diagnosis Code(s): --- Professional --- R19.5, Other fecal abnormalities D12.6, Benign neoplasm of colon, unspecified CPT copyright 2020 [employer]. All rights reserved. The codes documented in this report are preliminary and upon glove tagger reviewmay be revised to meet current compliance requirements. Cory Gao MD 06/20/2025 8:09:55 AM This report has been signed electronically.Cory Gao MD Number of Addenda: 0 Note Initiated On: 06/20/2025 7:47 AM Scope In: Scope Out: Endoscopy Department at [facility] - [address] [place] [phone] IMPRESSION: - Two 3 to 4 mm polyps at 30 cm proximal to the anus, removed with a cold snare. Resected andretrieved. - Non-bleeding internal hemorrhoids. - The examination was otherwise normal on directand retroflexion views. Recommendation: - Discharge patient to home. - Resume previous diet. - Continue present medications. - Await pathology results. - Repeat colonoscopy for surveillance based on pathology results. - Return to GI office PRN. us Cory Gao MD GI~PROCEDURE ORDERABLES Final Result * Tissue exam (06/20/2025 8:05 AM EDT) Final Diagnosis Polyps (x2 per specimen label), colon at 30 cm, polypectomy: - Tubular adenoma(s) (two fragments). 06/21/2025 11:44 AM EDT [facility] ([facility]) [facility] Gross Description A. Colon, polyp x2 at 30 cm: Labeled colon lia . Received in formalin are two soft to rubbery, [id number] to red, polypoid tissue fragments, approximately measuring 0.6 cm and 0.7 cm in greatest diameters, inked green at the margin, which are wrapped in paper and submitted in toto in one cassette, two pieces, multiple levels. hs/DG 06/21/2025 11:44 AM EDT [facility] Disclaimer Unless otherwise specified, all tissue is 10% NB formalin fixed and paraffin embedded. 06/21/2025 11:44 AM EDT [facility] Tissue Colon structure / Unknown 06/20/2025 8:05 AM EDT 06/20/2025 10:19 AM EDT us Cory Gao MD LAB PATHOLOGY ORDERABLES Samanta mccall Result [facility] [address] [place] [address], * (ABNORMAL) Cologuard?? colon cancer screening (06/05/2025 8:00 AM EDT) COLOGUARD Positive( A) Negative nuPSYS Comment: The Cologuard (TM) test was performed on this specimen. POSITIVE TEST RESULT. A positive Cologuard result should be followed with a colonoscopy or visual examination of the colon. The normal value (reference range) for this assay is negative. TEST DESCRIPTION: Composite algorithmic analysis of stool DNA-biomarkers with hemoglobin immunoassay. Quantitative values of individual biomarkers are not reportable and are not associated with individual biomarker result reference ranges. Cologuard is intended for colorectal cancer screening of adults of either sex, 45 years or older, who are at average-risk for colorectal cancer (CRC). Cologuard has been approved for use by the U.S. FDA. The performance of Cologuard was established in a cross sectional study of average-risk adults aged 50-84. Cologuard performance in patients ages 45 to 49 years was estimated by sub-group analysis of near-age groups. Colonoscopies performed for a positive result may find as the most clinically significant lesion: colorectal cancer [4.0%], advanced adenoma (including sessile serrated polyps greater than or equal to 1cm diameter) [20%] or non- advanced adenoma [31%]; or no colorectal neoplasia [45%]. These estimates are derived from a prospective cross-sectional screening study of 10,000 individuals at average risk for colorectal cancer who were screened with both Cologuard and colonoscopy. (Raghavendra Boucher al, N Engl J Med 2014;370(14):3904-9391.) Cologuard may produce a false negative or false positive result (no colorectal cancer or precancerous polyp present at colonoscopy follow up). A negative Cologuard test result does not guarantee the absence of CRC or advanced adenoma (pre-cancer). The current Cologuard screening interval is every 3 years. ([place] [employer] and U.S. Multi-Society Task Force). Cologuard performance data in a 10,000 patient pivotal study using colonoscopy as the reference method can be accessed at the following location: www.[email or web address]/results. Additional description of the Cologuard test process, warnings and precautions can be found at [email or web address]. Stool 06/05/2025 8:00 AM EDT 06/06/2025 11:09 AM EDT Asher Sandoval MD LAB MOLECULAR DIAGNOSTICS ORDER ZARINA Final Result [facility] [address] [place] [address] [facility] [address] [place] [address] * (ABNORMAL) Lipid panel with reflex to direct LDL (05/22/2025 9:44 AM EDT) Cholesterol 338(H) 0 - 200 mg/dL LAB CHEMISTRY METHOD 05/22/2025 2:57 PM EDT [facility] Triglycerides 141 0 - 150 mg/dL LAB CHEMISTRY METHOD 05/22/2025 2:57 PM EDT [facility] HDL 92 >=40 mg/dL LAB CHEMISTRY METHOD 05/22/2025 2:57 PM EDT [facility] LDL Calculated 218(H) 0 - 100 mg/dL LAB CHEMISTRY METHOD 05/22/2025 2:57 PM EDT [facility] VLDL Cholesterol Moshe 28.2 mg/dL LAB CHEMISTRY METHOD 05/22/2025 2:57 PM EDT [facility] Non HDL Chol. (LDL+VLDL) 246(H) <145 mg/dL LAB CHEMISTRY METHOD 05/22/2025 2:57 PM EDT [facility] Chol/HDL Ratio 3.7 0.0 - 4.4 LAB CHEMISTRY METHOD 05/22/2025 2:57 PM EDT [facility] Blood Venous blood specimen / Unknown Venipuncture / Unknown 05/22/2025 9:44 AM EDT 05/22/2025 9:44 AM EDT us Asher Sandoval MD LAB BLOOD ORDERABLES Final Resu lt [facility] [address] [place] [address], * (ABNORMAL) CBC auto differential (05/22/2025 9:44 AM EDT) WBC 5.6 4.8 - 10.8 K/mcL LAB HEMETOLOGY METHOD 05/22/2025 1:32 PM EDT [facility] RBC 4.60 3.80 - 4.80 M/mcL LAB HEMETOLOGY METHOD 05/22/2025 1:32 PM EDT [facility] Hemoglobin 14.7 11.5 - 16.0 g/dL LAB HEMETOLOGY METHOD 05/22/2025 1:32 PM EDT [facility] Hematocrit 44.2 35.0 - 47.0 % LAB HEMETOLOGY METHOD 05/22/2025 1:32 PM EDT [facility] MCV 96.7 79.0 - 98.0 FL LAB HEMETOLOGY METHOD 05/22/2025 1:32 PM EDT [facility] MCH 32.2(H) 27.0 - 32.0 pcg LAB HEMETOLOGY METHOD 05/22/2025 1:32 PM [facility] MCHC 33.3 32.0 - 37.0 g/dL LAB HEMETOLOGY METHOD 05/22/2025 1:32 PM [facility] RDW 13.5 11.0 - 15.0 % LAB HEMETOLOGY METHOD 05/22/2025 1:32 PM EDT [facility] Platelets 191 130 - 400 K/mcL LAB HEMETOLOGY METHOD 05/22/2025 1:32 PM [facility] MPV 9.6 7.0 - 11.0 FL LAB HEMETOLOGY METHOD 05/22/2025 1:32 PM [facility] NRBC 0.0 <1.0 % LAB HEMETOLOGY METHOD 05/22/2025 1:32 PM [facility] NRBC Absolute 0.00 <0.10 K/mcL LAB HEMETOLOGY METHOD 05/22/2025 1:32 PM [facility] Neutrophils Relative 53.8 % LAB HEMETOLOGY METHOD 05/22/2025 1:32 PM [facility] Lymphocytes Relative 26.1 % LAB HEMETOLOGY METHOD 05/22/2025 1:32 PM T [facility] Monocytes Relative 14.2 % LAB HEMETOLOGY METHOD 05/22/2025 1:32 PM [facility] Eosinophils Relative 4.5 % LAB HEMETOLOGY METHOD 05/22/2025 1:32 PM [facility] Basophils Relative 0.7 % LAB HEMETOLOGY METHOD 05/22/2025 1:32 PM [facility] Immature Granulocytes Relative 0.7 % LAB HEMETOLOGY METHOD 05/22/2025 1:32 PM EDT [facility] Neutrophils Absolute 2.98 1.50 - 7.00 K/mcL LAB HEMETOLOGY METHOD 05/22/2025 1:32 PM EDT [facility] Lymphocytes Absolute 1.45 1.00 - 5.00 K/mcL LAB HEMETOLOGY METHOD 05/22/2025 1:32 PM EDT [facility] Monocytes Absolute 0.79 0.20 - 1.00 K/mcL LAB HEMETOLOGY METHOD 05/22/2025 1:32 PM EDT [facility] Eosinophils Absolute 0.25 0.00 - 0.50 K/[facility] LAB HEMETOLOGY METHOD 05/22/2025 1:32 PM EDT [facility] Basophils Absolute 0.04 0.00 - 0.20 K/mcL LAB HEMETOLOGY METHOD 05/22/2025 1:32 PM EDT [facility] Immature Granulocytes Absolute 0.04(H) 0.00 - 0.03 K/[facility] LAB HEMETOLOGY METHOD 05/22/2025 1:32 PM EDT [facility] Blood Venous blood specimen / Unknown Venipuncture / Unknown 05/22/2025 9:44 AM EDT 05/22/2025 9:44 AM EDT us Asher Sandoval MD LAB BLOOD ORDERABLES Final Resu lt [facility] [address] [place] [address], * Hemoglobin A1c (05/22/2025 9:44 AM EDT) Hemoglobin A1C 5.4 <6.5 % LAB CHEMISTRY METHOD 05/22/2025 2:24 PM EDT [facility] Mean Bld Glu Estim. 108 mg/dL LAB CHEMISTRY METHOD 05/22/2025 2:24 PM EDT [facility] Blood Venous blood specimen / Unknown Venipuncture / Unknown 05/22/2025 9:44 AM EDT 05/22/2025 9:44 AM EDT us Asher Sandoval MD LAB BLOOD ORDERABLES Final Resu lt [facility] [address] [place] [address], [place] [phone] * Comprehensive metabolic panel (05/22/2025 9:44 AM EDT) Sodium 138 133 - 145 mmol/L LAB CHEMISTRY METHOD 05/22/2025 2:56 PM [facility] Potassium 4.5 3.5 - 5.5 mmol/L LAB CHEMISTRY METHOD 05/22/2025 2:56 PM [facility] Chloride 102 96 - 110 mmol/L LAB CHEMISTRY METHOD 05/22/2025 2:56 PM [facility] CO2 30 21 - 32 mmol/L LAB CHEMISTRY METHOD 05/22/2025 2:56 PM [facility] Anion Gap 6 3 - 11 LAB CHEMISTRY METHOD 05/22/2025 2:56 PM [facility] Glucose 93 70 - 100 mg/dL LAB CHEMISTRY METHOD 05/22/2025 2:56 PM [facility] BUN 18 5 - 25 mg/dL LAB CHEMISTRY METHOD 05/22/2025 2:56 PM [facility] Creatinine 0.81 0.50 - 1.10 mg/dL LAB CHEMISTRY METHOD 05/22/2025 2:56 PM [facility] eGFR 76 >=60 mL/min/1. 73m2 LAB CHEMISTRY METHOD 05/22/2025 2:56 PM [facility] Comment:Calculation based on the Chronic Kidney Disease Epidemiology Collaboration (CKD-EPI) equation refit without adjustment for race. BUN/Creatinine Ratio 22.2 LAB CHEMISTRY METHOD 05/22/2025 2:56 PM EDT [facility] Calcium 9.3 8.5 - 10.5 mg/dL LAB CHEMISTRY METHOD 05/22/2025 2:56 PM EDT [facility] AST (SGOT) 26 10 - 42 unit/L LAB CHEMISTRY METHOD 05/22/2025 2:56 PM EDT [facility] ALT (SGPT) 43 10 - 60 unit/L LAB CHEMISTRY METHOD 05/22/2025 2:56 PM EDT [facility] Alkaline Phosphatase 65 42 - 121 unit/L LAB CHEMISTRY METHOD 05/22/2025 2:56 PM EDT [facility] Total Protein 6.8 6.0 - 8.0 g/dL LAB CHEMISTRY METHOD 05/22/2025 2:56 PM EDT [facility] Albumin 3.7 3.2 - 5.0 g/dL LAB CHEMISTRY METHOD 05/22/2025 2:56 PM EDT [facility] Total Bilirubin 0.3 0.0 - 1.4 mg/dL LAB CHEMISTRY METHOD 05/22/2025 2:56 PM EDT [facility] Blood Venous blood specimen / Unknown Venipuncture / Unknown 05/22/2025 9:44 AM EDT 05/22/2025 9:44 AM EDT us Asher Sandoval MD LAB BLOOD ORDERABLES Final Resu lt [facility] [address] [place] [address], [place] [phone] * MG Mammo Digital Screening w Quirino bilat (03/23/2025 9:21 AM EDT) Anatomical Region Laterality Modality Breast Bilateral Mammography 03/23/2025 12:1 6 PM EDT Impressions 03/23/2025 12:20 PM EDT BILATERAL BREASTS: Negative, no evidence of malignancy. Normal interval follow- up is recommended in 12 months. BREAST DENSITY: C - The breasts are heterogeneously dense which may obscure small masses. BI-RADS CATEGORY: 1 - NEGATIVE RECOMMENDATION: Screening bilateral mammogram is recommended in 1 year. Mammo Location: [facility], [address] [place] [address], [id number], . -------- FINAL REPORT -------- Dictated By: Jared Gimenez Dictated Date: 03/23/2025 12:16 ET Assigned Physician: Jared Gimenez Reviewed and Electronically Signed By: Jared Gimenez Signed Date: 03/23/2025 12:20 ET Workstation ID: [id number] Transcribed By: Self Edit Transcribed Date: 03/23/2025 12:16 ET Narrative 03/23/2025 12:20 PM EDT STUDY: Bilateral screening mammography with tomosynthesis and CAD TECHNIQUE: Bilateral full-field digital screening mammography is obtained and read in conjunction with computer-aided detection. Tomosynthesis as well as 2-D C view imaging were obtained. COMPARISON: Comparison made to multiple prior, most recent July 22, 2023, and most remote March 20, 2016. BILATERAL BREASTS: No significant masses, suspicious calcifications or other abnormalities are seen in either breast. Procedure Note Jared Gimenez MD - 03/23/2025 STUDY: Bilateral screening mammography with tomosynthesis and CAD TECHNIQUE: Bilateral full-field digital screening mammography is obtainedand read in conjunction with computer-aided detection. Tomosynthesis aswell as 2-D C view imaging were obtained. COMPARISON: Comparison made to multiple prior, most recent July, and most remote March 20, 2016. BILATERAL BREASTS: No significant masses, suspicious calcifications orother abnormalities are seen in either breast. IMPRESSION: BILATERAL BREASTS: Negative, no evidence of malignancy. Normal intervalfollow-up is recommended in 12 months. BREAST DENSITY: C - The breasts are heterogeneously dense which mayobscure small masses. BI-RADS CATEGORY: 1 - NEGATIVE RECOMMENDATION: Screening bilateral mammogram is recommended in 1 year. Mammo Location: [facility], [address] [place] [address], [id number], . -------- FINAL REPORT -------- Dictated By: Jared Gimenez Dictated Date: 03/23/2025 12:16 ET Assigned Physician: Jared Gimenez Reviewed and Electronically Signed By: Jared Gimenez Signed Date: 03/23/2025 12:20 ET Workstation ID: [id number] Transcribed By: Self Edit Transcribed Date: 03/23/2025 12:16 ET us Asher Sandoval MD IMG BI PROCEDURES Final Result * DXA BONE DENSITY STUDY 1+ SITS AXIAL SKEL (07/21/2023 3:54 PM EDT) Anatomical Region Laterality Modality Bone Densitometr y 07/21/2023 2:42 PM EDT Narrative 07/21/2023 8:05 PM EDT STUDY: DUAL ENERGY X-RAY ABSORPTIOMETRY / DXA REASON FOR EXAM: Female, 73 years old. menopausal/postmenopausal disorder TECHNIQUE: Bone Mineral Density (BMD) measurements of the lumbar spine and left hip were obtained. COMPARISON: June 19, 2020 FINDINGS: L1-L4 T score: -2.5. This corresponds to osteoporosis. This represents a -6.4 % decrease in bone density compared with prior exam from June 19, 2020. Left femoral neck T score: -2.7. This corresponds to osteoporosis. Left total hip T score: -1.6. This corresponds to osteopenia. This represents a -6.4 % decrease in bone density compared with prior exam from June 19, 2020. IMPRESSION: IMPRESSION: Osteoporosis Reference Information: The T-score is the number of standard deviations above or below the standard which is normal for young adults at their peak bone mineral density. The World Health Organization (WHO) interprets the T-scores as follows: Above -1 Normal bone density Between -1 and -2.5 Osteopenia Equal to / or below -2.5 Osteoporosis As a practical clinical guideline, osteopenia may be graded as follows: Mild -1 through -1.5 Moderate -1.6 through -2.0 Severe -2.1 through -2.4 References: 1. NIH Osteoporosis and Related Bone Diseases http://www.osteo.org 2. International Society for Clinical Densitometry http://www.iscd.org 3. National Osteoporosis Foundation http://www.nof.org Procedure Note Jared Gimenez - 11/24/2023 STUDY: DUAL ENERGY X-RAY ABSORPTIOMETRY / DXA REASON FOR EXAM: Female, 73 years old. menopausal/postmenopausaldisorder TECHNIQUE: Bone Mineral Density (BMD) measurements of the lumbar spineand left hip were obtained. COMPARISON: June 19, 2020 FINDINGS: L1-L4 T score: -2.5. This corresponds to osteoporosis. This represents a -6.4 % decrease in bone density compared with prior examfrom June 19, 2020. Left femoral neck T score: -2.7. This corresponds to osteoporosis. Left total hip T score: -1.6. This corresponds to osteopenia. This represents a -6.4 % decrease in bone density compared with prior examfrom June 19, 2020. IMPRESSION: IMPRESSION: Osteoporosis Reference Information: The T-score is the number of standard deviations above or below thestandard which is normal for young adults at their peak bone mineral density. The World HealthOrganization (WHO) interprets the T-scores as follows: Above -1 Normal bone density Between -1 and -2.5 Osteopenia Equal to / or below -2.5 Osteoporosis As a practical clinical guideline, osteopenia may be graded as follows: Mild -1 through -1.5 Moderate -1.6 through -2.0 Severe -2.1 through -2.4 References: 1. NIH Osteoporosis and Related Bone Diseases http://www.osteo.org 2. International Society for Clinical Densitometry http://www.iscd.org 3. National Osteoporosis Foundation http://www.nof.org Lyric JHA IMG DXA PROCEDURES Samanta l Result * Hepatitis C Screening (03/17/2014) [facility] Hepatitis C Screening Abstracted Historical Provider HEALTH MAINTENANCE Final Result from Last 3 Months or Most Recently Relevant to Health Maintenance Insurance [employer] [employer] Care Teams Healthcare Specialist Relationship Specialty Start Date End Date Asher Sandoval MD [address] [place] [id number] PCP - General Internal Medicine 05/04/20
== END 2025-07-12 09:23 | disposition home or self-care (01) ==
LOC: HO.HSM 08:59
PROVIDERS: PCP Internal Medicine; Visit Provider Psychiatry & Neurology Neurology
DX: G40.909 Epilepsy, unspecified, not intractable, without status epilepticus (principal); G25.0 Essential tremor
CPT/HCPCS: 99214